=== PATIENT | female | born 1955 | race Caucasian/White ===

== ENCOUNTER 2022-07-23 10:22 | Day surgery (SDC) | payer MEDICARE, SELFPAY ==
--- NOTE | 2022-07-22 12:02 | P.CONAN_ITS ---
Documented by User: Myra Stubbs NP 07/22/22 12:03 HPI - Anesthesia Eval Consult details Narrative: 67yo F for Colonoscopy FOR[facility]LY [facility] Past Medical History Medical History Bipolar disorder Elevated cholesterol Left tibial fracture Surgical History Surgical History History of appendectomy Hx of gastric bypass Social History Social History Patient Tobacco Use Status: Current everyday Tobacco user Smoked in Last 30 Days: Yes Patient Interested in Nicotine Replacement: No Are you DNR?: No Advance Directives: No Advance Directives Information Provided: Yes Nutrition Risks: No Nutritional Risk Meds Allergies Allergy/AdvReac Type Severity Reaction Status Date / Time meperidine [From Demerol] Allergy Unknown Verified 07/23/22 11:04 Home Medications Medication Instructions Recorded Confirmed Last Taken Type bupropion HCl 150 mg 24 hr tablet, 1 tab PO DAILY 07/23/22 07/23/22 Unknown History extended release bupropion HCl 300 mg 24 hr tablet, 1 tab PO DAILY 07/23/22 07/23/22 Unknown History extended release Exam Exam Date and Time: July 22, 2022 1202 Assessment and Plan Assessment Anesthesia Assessment: Chart Reviewed Documented by User: Agustín Mena MD 08/01/22 21:25 HPI - Anesthesia Eval Consult details Narrative: 67yo F for Colonoscopy smoker [facility] Past Medical History Medical History Bipolar disorder Elevated cholesterol Left tibial fracture Functional capacity: independent ambulation Family History Family history of problems with anesthesia: No Surgical History Surgical History History of appendectomy Hx of gastric bypass History of Problems with Anesthesia: No Social History Social History Patient Tobacco Use Status: Current everyday Tobacco user Smoked in Last 30 Days: Yes Patient Interested in Nicotine Replacement: No Are you DNR?: No Advance Directives: No Advance Directives Information Provided: Yes Nutrition Risks: No Nutritional Risk Meds Allergies Allergy/AdvReac Type Severity Reaction Status Date / Time meperidine [From Demerol] Allergy Unknown Verified 07/23/22 11:04 Home Medications Medication Instructions Recorded Confirmed Last Taken Type bupropion HCl 150 mg 24 hr tablet, 1 tab PO DAILY 07/23/22 07/23/22 Unknown History extended release bupropion HCl 300 mg 24 hr tablet, 1 tab PO DAILY 07/23/22 07/23/22 Unknown History extended release Exam Airway Mallampati Class: III TM Dist: >3cm Neck ROM: Full Loose/Missing/Broken Teeth: Yes (Poor dentition ) Heart: S1,S2 Lungs: b/l breath sounds Assessment and Plan Assessment Anesthesia Assessment: Anesthesia Plan Discussed Final Anesthetic Review Family History of Problems with Anesthesia: No History of Problems with Anesthesia: No NPO: Yes ASA Class: II Final Preanesthetic Review: Meds/Allgs Chart Reviewed, Consent Obtained/Reviewed and Anes Risks/Benef Reviewed Patient Risk: Intermediate Procedure Risk: Intermediate Anesthetic Plan Anesthetic Plan: MAC: Disposition: Standard PACU
[2022-07-23] MEDS: Lactated Ringers 1,000 ML 100 ML IVCONT (10:48)
[2022-07-23 11:07] VITALS: BMI 27.6
[2022-07-23 11:08] VITALS: BP 139/83; PULSE 79; RESP 18; TEMP 36.6; O2SAT 98
--- NOTE | 2022-07-23 12:01 | MHC.SHP ---
Pre-Procedural Eval Section A Date of Service: 07/23/22 The patient is an INPATIENT: No Changes since office visit: No Cold of Flu in the past 2 weeks, No New Medical Problems, No Changes in Medication and No Patient answered all questions The History & Physical has been completed within 30 days and I have reviewed it.: Yes Section B Chief Complaint: hx malignant neoplasm,screening Allergies: Allergies Allergy/AdvReac Type Severity Reaction Status Date / Time meperidine [From Demerol] Allergy Unknown Verified 07/23/22 11:04 Plan I have reviewed the history and physical and performed a pertinent physical examination on my patient. No changes have occurred unless specified.
--- NOTE | 2022-07-23 12:41 | P.BOP_ITS ---
Brief Operative Note Date of Service: 07/23/22 Pre-op diagnosis: screening Post-op diagnosis: same Procedure: colonoscopy Surgeon: Ari Zelaya Anesthesia: MAC Was an Storage Battery Tester used for this Procedure?: No Estimated blood loss (mL): 5 Pathology: other Condition: stable Disposition: PACU
[2022-07-23 12:49] VITALS: BP 88/47; PULSE 70; RESP 16; TEMP 36.6; O2SAT 97
[2022-07-23 13:04] VITALS: BP 110/53; PULSE 72; RESP 16; O2SAT 100
[2022-07-23 13:20] VITALS: BP 116/56; PULSE 70; RESP 16; TEMP 36.6; O2SAT 97
--- NOTE | 2022-07-24 00:55 | OP_ITS ---
SURGEON: Ari Zelaya MD INDICATIONS: Colon cancer screening and family history of colon cancer. 07/23/22 PREOPERATIVE DIAGNOSIS: POSTOPERATIVE DIAGNOSIS: PROCEDURE PERFORMED: Colonoscopy to the terminal ileum with snare polypectomy. ESTIMATED BLOOD LOSS: COMPLICATIONS: ANESTHESIA: Medications; monitored anesthesia care. ASSISTANTS: SPECIMENS: DESCRIPTION OF PROCEDURE: History and physical performed. The risks and benefits of the procedure were explained to the patient. Informed consent was obtained. The patient was placed in the left lateral decubitus position. A digital rectal exam was performed and was found to be normal. The Olympus pediatric videocolonoscope was introduced into the rectum and advanced to the cecum without difficulty. The cecum was identified by transillumination, palpation, and identification of ileocecal valve. Examination was performed. The scope was removed. She tolerated the procedure well and was taken to recovery room in stable condition. FINDINGS: The terminal ileum was not examined. The visualized colonic mucosa was normal. There was some stool in the sigmoid and right colon, which was washed and suctioned. This did limit the sensitivity examination for detection of small polyps. 2 polyps were identified and removed with a cold snare, both measured less than 10 mm. These were located at 70 cm and 50 cm. No other polyps were identified. Retroflexed examination showed some hypertrophic anal papillae. IMPRESSION: Colon polyps. RECOMMENDATION: Follow up with biopsy results. MD AFSANEH Pereira/ERROL / [id number] MTDD
== END 2022-07-23 14:30 | disposition home or self-care (01) ==
PROVIDERS: PCP Hospitalist; Visit Provider Internal Medicine Gastroenterology
PROC: 0DJD8ZZ Inspection of Lower Intestinal Tract, Via Natural or Artificial Opening Endoscopic (ICD-10-PCS; CPT 45378; principal; 2022-07-23 11:30)
DX: Z12.11 Encounter for screening for malignant neoplasm of colon (principal); Z80.0 Family history of malignant neoplasm of digestive organs; Z86.010 Personal history of colon polyps; D12.4 Benign neoplasm of descending colon; D12.5 Benign neoplasm of sigmoid colon; K62.89 Other specified diseases of anus and rectum; E78.00 Pure hypercholesterolemia, unspecified; F31.9 Bipolar disorder, unspecified; Z79.899 Other long term (current) drug therapy; Z88.8 Allergy status to other drugs, medicaments and biological substances; Z98.84 Bariatric surgery status
CPT/HCPCS: 45385; 88305; J2250; J2370